=== PATIENT | female | born 2000 | race Caucasian/White ===

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

== ENCOUNTER 2019-05-27 12:26 | Emergency (ER) | payer OTHER ==
[2019-05-27 13:42] VITALS: TEMP 97.9
[2019-05-27 14:23] LABS: Appearance,Urine Clear (Clear); Bilirubin,Urine Negative (Negative); Blood,Urine Trace (Negative); Color,Urine Light Yellow; Glucose,Urine (UA) Negative (Negative); Ketones,Urine Negative (Negative); Leukocyte Esterase,Urine Negative (Negative); Mucus,Urine Rare /hpf; Nitrite,Urine Negative (Negative); Protein,Urine Negative (Negative); RBC,Urine <1 /hpf (0-5); Specific Gravity,Urine 1.008 (1.001-1.035); Squamous Epithelial Cell,Urine 1 /hpf (0-4); Urobilinogen,Urine <2.0 mg/dL (<2.0)
[2019-05-27 14:56] LABS: Basophils # (A) 0.1 k/uL (0-0.2); Basophils % (A) 0 %; Eosinophils # (A) 0.2 k/uL (0-0.7); Eosinophils % (A) 1 %; HCT 38.8 % (34.0-46.0); Lymphocytes # (A) 2.6 k/uL (1.0-4.8); Lymphocytes % (A) 19 %; MCH 25.2 pg (25.0-35.0); MCHC 33.4 g/dL (31.0-37.0); MCV 75.5 fL (80.0-100.0); Mean Platelet Volume 6.5; Microcytosis Slight; Monocytes # (A) 0.7 k/uL (0-1.0); Monocytes % (A) 5 %; Neutrophils # (A) 9.9 k/uL (1.3-7.7); Neutrophils % (A) 73 %; Platelet Count 496 k/uL (150-450); RBC 5.14 m/uL (3.80-5.40); RDW 14.7 % (11.5-15.5); WBC 13.6 k/uL (4.0-11.0)
--- NOTE | 2019-05-27 15:52 | ED ---
Female Urogenital HPI - General Chief complaint: Vaginal Bleeding Stated complaint: newly preg, bleeding Time Seen by Provider: 05/27/19 15:34 Source: patient, family Mode of arrival: ambulatory Limitations: no limitations - History of Present Illness Initial comments: 18-year-old female with no severe past medical history presents today for chief complaint vaginal bleeding principal. Patient states she has irregular periods, last was in the end of March. Patient states that she had some spotting at that time. She states that she took a positive presents to test a few weeks ago. She did make an appointment with Dr. Salinas, however she was told by office staff that they'll call her back to set a date. Patient states that on Sunday she began experiencing mild cramping and bleeding associated having a period. Patient states she did experience some bleeding with her last . Patient states the bleeding persisted and was having she presents emergency room for evaluation with concern first miscarriage. Patient denies any rectal bleeding dizziness lightheadedness syncopal episodes she denies any pallor heart palpitations vaginal discharge or severe abdominal pain. Patient has no other complaints remaining review system negative. Upon arrival patient appears normal signs of acute distress. Last Menstrual Period: 03/28/19 - Related Data Home Medications Medication Instructions Recorded Confirmed Pnv,Calcium 72/Iron/Folic Acid 1 tab PO DAILY 11/26/16 04/29/17 [ Plus Tablet] Previous Rx's Medication Instructions Recorded Acetaminophen-Codeine 300-30mg 2 each PO Q6HR PRN #30 tab 05/04/17 [Tylenol w/codeine #3] Ibuprofen [Motrin] 600 mg PO Q6HR PRN #30 tab 05/04/17 Allergies Allergy/AdvReac Type Severity Reaction Status Date / Time No Known Allergies Allergy Verified 05/27/19 13:42 Review of Systems ROS Statement: Those systems with pertinent positive or pertinent negative responses have been documented in the HPI. ROS Other: All systems not noted in ROS Statement are negative. Past Medical History Past Medical History: No Reported History Additional Past Medical History / Comment(s): OB history: tHis is her first and she has had care with me since the first timester. O+, abs neg, Rub nonimmune, Treponemal ab negm, HIV NR, toxo neg, HEp B neg, GBS neg. History of Any Multi-Drug Resistant Organisms: None Reported Past Surgical History: No Surgical Hx Reported Additional Past Surgical History / Comment(s): lymph node removed as a baby Past Anesthesia/Blood Transfusion Reactions: No Reported Reaction Past Psychological History: No Psychological Hx Reported Smoking Status: Never smoker Past Alcohol Use History: None Reported Past Drug Use History: None Reported - Past Family History Father Family Medical History: Congestive Heart Failure (CHF), Coronary Artery Disease (CAD) Mother Additional Family Medical History / Comment(s): lupus General Exam - General Exam Comments Initial Comments: General: The patient is awake and alert, in no distress, and does not appear acutely ill. Eye: Pupils are equal, round and reactive to light, extra-ocular movements are intact. No nystagmus. There is normal conjunctiva bilaterally. No signs of icterus. Cardiovascular: There is a regular rate and rhythm. No murmur, rub or gallop is appreciated. Respiratory: Lungs are clear to auscultation, respirations are non-labored, breath sounds are equal. No wheezes, stridor, rales, or rhonchi. Gastrointestinal: Soft, non-distended, non-tender abdomen without masses or organomegaly noted. There is no rebound or guarding present. Pelvic exam: No external lesions, vaginal mucosa without lesions pink well rugated, moderate amount of blood in the vaginal vault, there is no adnexal or cervical motion tenderness Musculoskeletal: Normal ROM, no tenderness. Strength 5/5. Sensation intact. Radial pulses equal bilaterally 2+. Neurological: A&O x 3. CN II-XII intact grossly, There are no obvious motor or sensory deficits. Coordination appears grossly intact. Speech is normal. Skin: Skin is warm and dry and no rashes or lesions are noted. Psychiatric: Cooperative, appropriate mood & affect, normal judgment. Limitations: no limitations Course Vital Signs 05/27/19 05/27/19 13:40 17:27 Temperature 97.9 F Pulse Rate 69 70 Respiratory 18 16 Rate Blood Pressure 99/58 110/68 O2 Sat by Pulse 98 98 Oximetry Medical Decision Making - Medical Decision Making Appearing 18-year-old female presenting for vaginal bleeding present. Urine hCG positive. HCG quantitative serum 3617. Patient US revealed a IUP with no HR. Appears as portion to patient's last menstrual period however patient does not have regular periods. Patient crown-rump is measuring 7 weeks. Differential diagnosis includes demise, vs early . Would need to trend HCG and US in order to confirm a diagnosis. Patient has established OBGYN care and has been in contact. HCG lab order was given to patient instructed to repeat this and call [facility] office tomorrow. Return parameters, ddx discussed. Patient appears well, hemodynamically stable. 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 - Lab Data Result diagrams: 05/27/19 14:20 05/27/19 14:20 Lab Results 05/27/19 05/27/19 05/27/19 Range/Units 13:56 13:56 14:20 WBC 13.6 H (4.0-11.0) k/uL RBC 5.14 (3.80-5.40) m/uL Hgb 13.0 (11.4-16.0) gm/dL Hct 38.8 (34.0-46.0) % MCV 75.5 L (80.0-100.0) fL MCH 25.2 (25.0-35.0) pg MCHC 33.4 (31.0-37.0) g/dL RDW 14.7 (11.5-15.5) % Plt Count 496 H (150-450) k/uL Neutrophils % 73 % Lymphocytes % 19 % Monocytes % 5 % Eosinophils % 1 % Basophils % 0 % Neutrophils # 9.9 H (1.3-7.7) k/uL Lymphocytes # 2.6 (1.0-4.8) k/uL Monocytes # 0.7 (0-1.0) k/uL Eosinophils # 0.2 (0-0.7) k/uL Basophils # 0.1 (0-0.2) k/uL Microcytosis Slight Sodium (137-145) mmol/L Potassium (3.5-5.1) mmol/L Chloride (98-107) mmol/L Carbon Dioxide (22-30) mmol/L Anion Gap mmol/L BUN (7-17) mg/dL Creatinine (0.52-1.04) mg/dL Est GFR (CKD-EPI)AfAm (>60 ml/min/1.73 sqM) Est GFR (CKD-EPI)NonAf (>60 ml/min/1.73 sqM) Glucose (74-99) mg/dL Calcium (8.4-10.2) mg/dL Total Bilirubin (0.2-1.3) mg/dL AST (14-36) U/L ALT (9-52) U/L Alkaline Phosphatase (38-126) U/L Total Protein (6.3-8.2) g/dL Albumin (3.5-5.0) g/dL HCG, Qual HCG, Quant mIU/mL Urine Color Light Yellow Urine Appearance Clear (Clear) Urine pH 7.0 (5.0-8.0) Ur Specific [place] 1.008 (1.001-1.035) Urine Protein Negative (Negative) Urine Glucose (UA) Negative (Negative) Urine Ketones Negative (Negative) Urine Blood Trace H (Negative) Urine Nitrite Negative (Negative) Urine Bilirubin Negative (Negative) Urine Urobilinogen <2.0 (<2.0) mg/dL Ur Leukocyte Esterase Negative (Negative) Urine RBC <1 (0-5) /hpf Ur Squamous Epith Cells 1 (0-4) /hpf Urine Mucus Rare H (None) /hpf Urine HCG, Qual Detected (Not Detectd) Trichomonas Ag (Rapid) (Negative) Blood Type Blood Type Recheck Bld Type Recheck Status Antibody Screen Spec Expiration Date 05/27/19 05/27/19 05/27/19 Range/Units 14:20 14:20 14:20 WBC (4.0-11.0) k/uL RBC (3.80-5.40) m/uL Hgb (11.4-16.0) gm/dL Hct (34.0-46.0) % MCV (80.0-100.0) fL MCH (25.0-35.0) pg MCHC (31.0-37.0) g/dL RDW (11.5-15.5) % Plt Count (150-450) k/uL Neutrophils % % Lymphocytes % % Monocytes % % Eosinophils % % Basophils % % Neutrophils # (1.3-7.7) k/uL Lymphocytes # (1.0-4.8) k/uL Monocytes # (0-1.0) k/uL Eosinophils # (0-0.7) k/uL Basophils # (0-0.2) k/uL Microcytosis Sodium 141 (137-145) mmol/L Potassium 4.6 (3.5-5.1) mmol/L Chloride 102 (98-107) mmol/L Carbon Dioxide 25 (22-30) mmol/L Anion Gap 14 mmol/L BUN 9 (7-17) mg/dL Creatinine 0.56 (0.52-1.04) mg/dL Est GFR (CKD-EPI)AfAm >90 (>60 ml/min/1.73 sqM) Est GFR (CKD-EPI)NonAf >90 (>60 ml/min/1.73 sqM) Glucose 86 (74-99) mg/dL Calcium 10.6 H (8.4-10.2) mg/dL Total Bilirubin 0.3 (0.2-1.3) mg/dL AST 26 (14-36) U/L ALT 17 (9-52) U/L Alkaline Phosphatase 101 (38-126) U/L Total Protein 8.6 H (6.3-8.2) g/dL Albumin 4.7 (3.5-5.0) g/dL HCG, Qual Detected HCG, Quant 3617.7 mIU/mL Urine Color Urine Appearance (Clear) Urine pH (5.0-8.0) Ur Specific [place] (1.001-1.035) Urine Protein (Negative) Urine Glucose (UA) (Negative) Urine Ketones (Negative) Urine Blood (Negative) Urine Nitrite (Negative) Urine Bilirubin (Negative) Urine Urobilinogen (<2.0) mg/dL Ur Leukocyte Esterase (Negative) Urine RBC (0-5) /hpf Ur Squamous Epith Cells (0-4) /hpf Urine Mucus (None) /hpf Urine HCG, Qual (Not Detectd) Trichomonas Ag (Rapid) (Negative) Blood Type O Positive Blood Type Recheck O Pos Bld Type Recheck Status No Antibody Screen NEGATIVE Spec Expiration Date 05/30/2019 - 231905/27/19 Range/Units 17:30 WBC (4.0-11.0) k/uL RBC (3.80-5.40) m/uL Hgb (11.4-16.0) gm/dL Hct (34.0-46.0) % MCV (80.0-100.0) fL MCH (25.0-35.0) pg MCHC (31.0-37.0) g/dL RDW (11.5-15.5) % Plt Count (150-450) k/uL Neutrophils % % Lymphocytes % % Monocytes % % Eosinophils % % Basophils % % Neutrophils # (1.3-7.7) k/uL Lymphocytes # (1.0-4.8) k/uL Monocytes # (0-1.0) k/uL Eosinophils # (0-0.7) k/uL Basophils # (0-0.2) k/uL Microcytosis Sodium (137-145) mmol/L Potassium (3.5-5.1) mmol/L Chloride (98-107) mmol/L Carbon Dioxide (22-30) mmol/L Anion Gap mmol/L BUN (7-17) mg/dL Creatinine (0.52-1.04) mg/dL Est GFR (CKD-EPI)AfAm (>60 ml/min/1.73 sqM) Est GFR (CKD-EPI)NonAf (>60 ml/min/1.73 sqM) Glucose (74-99) mg/dL Calcium (8.4-10.2) mg/dL Total Bilirubin (0.2-1.3) mg/dL AST (14-36) U/L ALT (9-52) U/L Alkaline Phosphatase (38-126) U/L Total Protein (6.3-8.2) g/dL Albumin (3.5-5.0) g/dL HCG, Qual HCG, Quant mIU/mL Urine Color Urine Appearance (Clear) Urine pH (5.0-8.0) Ur Specific [place] (1.001-1.035) Urine Protein (Negative) Urine Glucose (UA) (Negative) Urine Ketones (Negative) Urine Blood (Negative) Urine Nitrite (Negative) Urine Bilirubin (Negative) Urine Urobilinogen (<2.0) mg/dL Ur Leukocyte Esterase (Negative) Urine RBC (0-5) /hpf Ur Squamous Epith Cells (0-4) /hpf Urine Mucus (None) /hpf Urine HCG, Qual (Not Detectd) Trichomonas Ag (Rapid) Negative (Negative) Blood Type Blood Type Recheck Bld Type Recheck Status Antibody Screen Spec Expiration Date Disposition Clinical Impression: Vaginal bleeding during , Threatened Disposition: HOME SELF-CARE Condition: Good Instructions (If sedation given, give patient instructions): Threatened Miscarriage (ED) Additional Instructions: Please use medication as discussed. Please follow-up with OBGYN to discuss the results of repeat HCG levels within next week-call office tomorrow to place appointment. Please return to emergency room if the symptoms increase or worsen or for any other concerns. Is patient prescribed a controlled substance at d/c from ED?: No Referrals: Nonstaff,Physician [Primary Care Provider] - 1-2 days America Salinas DO [Doctor of Osteopathic Medicine] - 1-2 days Time of Disposition: 17:15
[2019-05-27 16:24] LABS: ALT 17 U/L (9-52); AST 26 U/L (14-36); African American GFR (CKD) >90 (>60 ml/min/1.73 sqM); Albumin 4.7 g/dL (3.5-5.0); Alkaline Phosphatase 101 U/L (38-126); Anion Gap 14 mmol/L; Blood Urea Nitrogen 9 mg/dL (7-17); Calcium 10.6 mg/dL (8.4-10.2); Carbon Dioxide 25 mmol/L (22-30); Chloride 102 mmol/L (98-107); Glucose 86 mg/dL (74-99); Potassium 4.6 mmol/L (3.5-5.1); Sodium 141 mmol/L (137-145); Total Bilirubin 0.3 mg/dL (0.2-1.3); Total Protein 8.6 g/dL (6.3-8.2)
[2019-05-27 16:40] LABS: HCG,Quantitative Serum 3617.7 mIU/mL
--- NOTE | 2019-05-27 16:47 | US ---
EXAMINATION TYPE: Ultrasound OB <= 14 weeks transvaginal DATE OF EXAM: 05/27/2019 4:31 PM COMPARISON: NONE CLINICAL HISTORY: 18 year-old female with Bleeding. No pain. EXAM PERFORMED: Transvaginal (TV) and Transabdominal (TA) FINDINGS: EXAM MEASUREMENTS: GESTATIONAL AGE / DATING Dates by LMP: ( 8 weeks/4 days) EDC: 01/02/2020 Dates by Current Scan for: ( 7 weeks/1 days +/- 5 days) EDC: 01/12/2020 MATERNAL ANATOMY Uterus: 10.0 x 5.0 x 4.5 cm Right Ovary: 2.6 x 1.4 x 1.0 cm Left Ovary: 3.4 x 2.9 x 2.7 cm Post CDS / Adnexa: no free fluid Presence of free fluid: no Presence of corpus luteal cyst: left ovarian lesion with peripheral vascular flow = 2.8 x 2.2 x 2.0 c m Presence of subchorionic bleed: no GESTATION / SURVEY CRL: 1.1 cm (7 weeks/1 days) MSD: appears small in size Yolk Sac (normal less than 6mm): No YS seen Heart Rate: 0 bpm IUP: Java [employer] notes: [place] Date of LMP: 03/28/2019, Beta HcG (if available): Not available at this time [employer] notes: GS and CRL visualized. Negative FHT's. Color doppler and MMode performed. Fluid seen in cervical canal. GS and pole appear small in size relative to LMP. IMPRESSION: 1. Intrauterine gestation measuring 7 weeks 1 day by crown-rump length and 8 weeks 4 days by LMP whic h is discordant. In addition, no heart tones are identified. Findings highly suggestive of intr auterine size. Confirmation with appropriate downtrending beta-hCG is recommended. 2. A 2.8 cm probable corpus luteum in the left ovary.
[2019-05-27 17:34] VITALS: BP 110/68; PULSE 70; RESP 16
[2019-05-28 12:54] LABS: C. trachomatis,PCR Negative (Neg,Equiv); Chlamydia trachomatis Source Vagina
[2019-05-28 13:04] LABS: N. gonorrhoeae,PCR Negative (Neg,Equiv); Neisseria Source Vagina
== END 2019-05-27 17:27 | disposition home or self-care (01) ==
LOC: EC 12:26
DX: O20.0 Threatened abortion (principal); Z3A.01 Less than 8 weeks gestation of pregnancy
CPT/HCPCS: 36415; 76801; 76817; 80053; 81001; 81025; 84702; 84703; 85025; 86850; 86900; 86901; 87070; 87491; 87591; 87808; 99284

== ENCOUNTER 2021-09-22 16:39 | Outpatient (CLI) | payer OTHER ==
[2021-09-22 17:43] LABS: Basophils % (A) 0 %; Eosinophils # (A) 0.1 k/uL (0-0.7); Eosinophils % (A) 1 %; HCT 31.5 % (34.0-46.0); HGB 10.3 gm/dL (11.4-16.0); Lymphocytes # (A) 1.9 k/uL (1.0-4.8); Lymphocytes % (A) 13 %; MCH 25.8 pg (25.0-35.0); MCHC 32.6 g/dL (31.0-37.0); Mean Platelet Volume 8.3; Monocytes # (A) 0.8 k/uL (0-1.0); Monocytes % (A) 5 %; Neutrophils # (A) 11.4 k/uL (1.3-7.7); Neutrophils % (A) 79 %; Platelet Count 373 k/uL (150-450); RBC 3.99 m/uL (3.80-5.40); RDW 14.7 % (11.5-15.5); WBC 14.5 k/uL (3.8-10.6)
[2021-09-22 17:56] LABS: ALT 15 U/L (4-34); AST 15 U/L (14-36); African American GFR (CKD) >90 (>60 ml/min/1.73 sqM); Blood Urea Nitrogen 8 mg/dL (7-17); LDH 296 U/L (313-618); Non-African American GFR(CKD) >90 (>60 ml/min/1.73 sqM); Uric Acid 4.2 mg/dL (3.7-7.4)
[2021-09-22 18:58] LABS: Amorphous Sediment,Urine Occasional /hpf; Appearance,Urine Turbid (Clear); Bilirubin,Urine Negative (Negative); Blood,Urine Negative (Negative); Color,Urine Yellow; Glucose,Urine (UA) Negative (Negative); Ketones,Urine Negative (Negative); Leukocyte Esterase,Urine Small (Negative); Mucus,Urine Rare /hpf; Nitrite,Urine Negative (Negative); PH, Urine 6.5 (5.0-8.0); Protein,Urine Trace (Negative); RBC,Urine 1 /hpf (0-5); Specific Gravity,Urine 1.017 (1.001-1.035); Squamous Epithelial Cell,Urine 3 /hpf (0-4); Urobilinogen,Urine <2.0 mg/dL (<2.0); WBC,Urine 1 /hpf (0-5)
[2021-09-22 19:00] LABS: Creatinine,Urine Random 87.9 mg/dL; Protein/Creatinine Ratio,Urine 0.137
[2021-09-22 19:29] VITALS: BP 134/70; PULSE 101; RESP 18; TEMP 98
--- NOTE | 2021-09-23 13:20 | P.MSEPDOC ---
Presenting Problems - Arrival Data Date of Arrival on Unit: 09/22/21 Time of Arrival on Unit: 16:39 Mode of Transport: Ambulatory - Complaint OB-Reason for Admission/Chief Complaint: PIH Medical History - Information : 3 Para: 1 Term: 1 : 0 Abortions: Spontaneous or Elective: 0 Number of Living Children: 1 - Gestational Age Gestational Age by MAYUR (wks/days): 34 Weeks and 1 Days - History Complications: Chronic HTN Review of Systems - Review of Systems Constitutional: No problems Breast: No problems ENT: No problems Cardiovascular: No problems Respiratory: No problems Gastrointestinal: No problems Genitourinary: No problems Musculoskeletal: No problems Neurological: No problems Skin: No problems Vital Signs - Temperature Temperature: 98.0 F Temperature Source: Oral - Pulse Right Pulse Oximetery Pulse Rate: 101 Pulse Assessment Method: Pulse Oximetry - Respirations Respiratory Rate: 18 Oxygen Delivery Method: Room Air O2 Sat by Pulse Oximetry: 100 - Blood Pressure Right Arm Blood Pressure: 134/70 Blood Pressure Mean: 91 Blood Pressure Source: Automatic Cuff Physician Notification - Physician Notified Physician Notified Date: 09/22/21 Physician Notified Time: 19:24 Physician: Ross Rey Order Received: Yes (okay to D/C patient with instructions to take her 100mg labetolol BID) Maternal Triage Index - Maternal Triage Index Presenting for scheduled procedure w/no complaint: No - Stat/Priority 1 Stat Priority 1: No - Urgent/Priority 2 Urgent Priority 2: No - Prompt/Priority 3 Prompt Priority 3: Yes Criteria Met for Priority 3: elevated BP at office, here for PIH workup. Disposition - Disposition OB Disposition: Discharge to home Discharge Date: 09/22/21 Discharge Time: 19:25 I agree with the RN Medical Screening Exam: Yes Case reviewed; plan agreed upon as documented in EMR&OBIX.: Yes Diagnosis: PRE-EXISTING ESSENTIAL HTN COMP , THIRD TRIMESTER
== END 2021-09-22 19:25 | disposition home or self-care (01) ==
LOC: FBPOP 16:39
PROVIDERS: ATTEND Obstetrics & Gynecology
DX: O10.013 Pre-existing essential hypertension complicating pregnancy, third trimester (principal); Z3A.34 34 weeks gestation of pregnancy
CPT/HCPCS: 59025; 81001; 82565; 82570; 83615; 84156; 84450; 84460; 84520; 84550; 85025

== ENCOUNTER 2021-10-12 15:45 | Outpatient (CLI) | payer OTHER ==
[2021-10-12 17:05] VITALS: BP 129/71; PULSE 94; RESP 18; TEMP 97.1
--- NOTE | 2021-10-14 07:58 | P.MSEPDOC ---
Presenting Problems - Arrival Data Date of Arrival on Unit: 10/12/21 Time of Arrival on Unit: 15:45 Mode of Transport: Ambulatory - Complaint OB-Reason for Admission/Chief Complaint: Possible Onset of Labor Comment: pt states contractions started at 1330, every few minutes. none seen per monitor or palpated. Medical History - Information : 3 Para: 1 Term: 1 : 0 Abortions: Spontaneous or Elective: 1 Number of Living Children: 1 - Gestational Age Gestational Age by MAYUR (wks/days): 37 Weeks and 0 Days - History Complications: Hx. Substance Abuse Comment: marijuana use during , last used 2weeks-1month ago Review of Systems - Review of Systems Constitutional: No problems Breast: No problems ENT: No problems Cardiovascular: No problems Respiratory: No problems Gastrointestinal: No problems Genitourinary: No problems Musculoskeletal: No problems Neurological: No problems Skin: No problems Vital Signs - Temperature Temperature: 97.1 F Temperature Source: Temporal Artery Scan - Pulse Right Pulse Oximetery Pulse Rate: 94 Pulse Assessment Method: Pulse Oximetry - Respirations Respiratory Rate: 18 Oxygen Delivery Method: Room Air O2 Sat by Pulse Oximetry: 98 - Blood Pressure Right Arm Blood Pressure: 129/71 Blood Pressure Mean: 90 Blood Pressure Source: Automatic Cuff Medical Screen Scoring - Cervical Exam Dilation (cm): 2 Effacement (%): 0 Station: -3 Membranes: Intact - Assessment - Baby A Baseline FHR: 135 Heart Rate - NICHD Category: Category I (Normal) NST: Reactive Physician Notification - Physician Notified Physician Notified Date: 10/12/21 Physician Notified Time: 14:47 Physician: America Salinas New Order Received: Yes - Notification Comment Comment: okay to D/C pt home with instructions Maternal Triage Index - Maternal Triage Index Presenting for scheduled procedure w/no complaint: No - Stat/Priority 1 Stat Priority 1: No - Urgent/Priority 2 Urgent Priority 2: No - Prompt/Priority 3 Prompt Priority 3: No - Non-Urgent/Priority 4 Non-Urgent Priority 4: Yes Criteria Met for Priority 4: pt here for rule out labor, no contractions once admitted to triage. Disposition - Disposition OB Disposition: Discharge to home Discharge Date: 10/12/21 Discharge Time: 14:55 I agree with the RN Medical Screening Exam: Yes Case reviewed; plan agreed upon as documented in EMR&OBIX.: Yes Diagnosis: FALSE LABOR BEFORE 37 COMPLETED WEEKS OF GEST, THIRD TRI
== END 2021-10-12 16:55 | disposition home or self-care (01) ==
LOC: FBPOP 15:45
PROVIDERS: ATTEND Obstetrics & Gynecology
DX: O47.1 False labor at or after 37 completed weeks of gestation (principal); Z3A.37 37 weeks gestation of pregnancy
CPT/HCPCS: 59025; G0463; 99213

== ENCOUNTER 2021-10-26 06:13 | Inpatient (IN) | payer OTHER ==
[2021-10-25 11:09] VITALS: BMI 40.3
--- NOTE | 2021-10-25 20:30 | P.HPOB ---
History of Present Illness H&P Date: 10/25/21 Chief Complaint: Scheduled repeat section with tubal ligation This is a 21 y.o. female, 3, para 1, with an estimated date of confinement of 11/02/2021, estimated gestational age of 39 weeks, who presents for scheduled repeat section with bilateral partial salpingectomy for family planning. She admits to good movement. She has been getting re gular NSTs due to chronic hypertension and has been on Labetalol for blood pressure control. labs: Blood type-O+ Antibody screen-neg Hemoglobin-11.7 Pap-wnl Rubella-immune RPR-NR Hepatitis B surface antigen-neg HIV-NR GC/Chlamydia-neg UDS-03/23/2021-+marijuana Quad-neg 1 hr. GTT-110 GBS-neg OB Hx: . History of previous section, emergent at 39 weeks. Baby wt. was 8#4oz. History of 1 miscarriage. Social Hx: Single. 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 Review of Systems Constitutional: Denies chills, Denies fever Eyes: denies blurred vision, denies pain Ears, nose, mouth and throat: Denies headache, Denies sore throat Cardiovascular: Denies chest pain, Denies shortness of breath Respiratory: Denies cough Gastrointestinal: Reports abdominal pain (irregular contractions) Genitourinary: Reports pelvic pain, Reports Musculoskeletal: Reports low back pain Past Medical History Past Medical History: Hypertension Additional Past Medical History / Comment(s): hx migraines History of Any Multi-Drug Resistant Organisms: None Reported Past Surgical History: Section Additional Past Surgical History / Comment(s): rt lymph node removed as a baby due to cat scratch fever Past Anesthesia/Blood Transfusion Reactions: No Reported Reaction Past Psychological History: No Psychological Hx Reported Smoking Status: Never smoker Past Alcohol Use History: None Reported Past Drug Use History: Marijuana - Past Family History Father Family Medical History: Congestive Heart Failure (CHF), Coronary Artery Disease (CAD) Mother Additional Family Medical History / Comment(s): lupus Medications and Allergies Home Medications Medication Instructions Recorded Confirmed Type Labetalol [Trandate] 100 mg PO BID 10/12/21 10/26/21 History Pnv No.95/Ferrous Fum/Folic AC 1 tab PO DAILY 10/12/21 10/26/21 History [ Multivitamin Tablet] Allergies Allergy/AdvReac Type Severity Reaction Status Date / Time No Known Allergies Allergy Verified 10/25/21 11:02 Exam Osteopathic Statement: *. No significant issues noted on an osteopathic structural exam other than those noted in the History and Physical/Consult. Intake and Output 10/25/21 10/25/21 10/25/21 06:59 14:59 22:59 Other: Weight 113.398 kg HEENT: within normal limits Heart: regular rate and rhythm Lungs: clear to auscultation bilaterally Abdomen: soft, Cervix: 1 cm/60%/-1 heart tones: 140's by doppler Extremities: neg. Guille's Results Result Diagrams: 10/26/21 06:38 Assessment and Plan (1) 39 weeks gestation of Current Visit: No Status: Acute Code(s): Z3A.39 - 39 WEEKS GESTATION OF SNOMED Code(s): 84713061 (2) Chronic hypertension affecting Current Visit: No Status: Acute Code(s): O10.919 - UNSP PRE-EXISTING HTN COMP , UNSP TRIMESTER SNOMED Code(s): 03972115 (3) Family planning Current Visit: No Status: Acute Code(s): Z30.09 - ENCOUNTER FOR OTH GENERAL CNSL AND ADVICE ON CONTRACEPTION SNOMED Code(s): 392313139 Plan: Proceed with repeat low transverse section with bilateral partial salpingectomy. I have discussed the risks, benefits, and alternative therapies for the above- mentioned procedure and for both sedation/anesthesia as well as necessary blood products administration, if indicated, as they pertain to this patient. The patient has indicated her understanding and acceptance of the risks and procedures discussed.
[2021-10-26] MEDS ORDERED: CITRIC ACID-SODIUM CITRATE 15 ML CUP PO ONE (06:22)
[2021-10-26] MEDS ORDERED: LIDOCAINE 1% (10MG/ML) FOR IV START INTRADERMA PRN (06:22)
[2021-10-26] MEDS ORDERED: LACTATED RINGERS 1,000 ML IV ONE (06:22)
[2021-10-26 07:01] LABS: Basophils % (A) 0 %; Eosinophils # (A) 0.1 k/uL (0-0.7); Eosinophils % (A) 1 %; HCT 32.2 % (34.0-46.0); HGB 10.3 gm/dL (11.4-16.0); Lymphocytes # (A) 1.9 k/uL (1.0-4.8); Lymphocytes % (A) 14 %; MCH 24.8 pg (25.0-35.0); MCHC 31.9 g/dL (31.0-37.0); MCV 77.8 fL (80.0-100.0); Mean Platelet Volume 8.6; Monocytes # (A) 0.7 k/uL (0-1.0); Monocytes % (A) 5 %; Neutrophils # (A) 10.6 k/uL (1.3-7.7); Neutrophils % (A) 78 %; Platelet Count 364 k/uL (150-450); RBC 4.14 m/uL (3.80-5.40); RDW 15.1 % (11.5-15.5); WBC 13.7 k/uL (3.8-10.6)
[2021-10-26 07:08] LABS: Glucose,Urine (UA) Negative (Negative); Ketones,Urine Negative (Negative); Protein,Urine Negative (Negative)
[2021-10-26] MEDS: LABETALOL 100 MG TAB PO SCH ×3 (07:08→20:24)
[2021-10-26 07:10] LABS: Amphetamine Screen,Urine Not Detected (NotDetected); Barbiturate Screen,Urine Not Detected (NotDetected); Benzodiazepines Screen,Urine Not Detected (NotDetected); Cocaine Screen,Urine Not Detected (NotDetected); Methadone Screen, Urine Not Detected (NotDetected); Opiate Screen,Urine Not Detected (NotDetected); Oxycodone Screen, Urine Not Detected (NotDetected); Phencyclidine Screen,Urine Not Detected (NotDetected); Tricyclic Antidepressant,Urine Not Detected (NotDetected); Urn Cannabinoid Scrn Not Detected (NotDetected)
[2021-10-26] MEDS ORDERED: KETOROLAC 15 MG/ML 1 ML VIAL ONE (07:57)
[2021-10-26] MEDS ORDERED: ONDANSETRON 4 MG/2 ML VIAL ONE (07:57)
[2021-10-26] MEDS ORDERED: fentaNYL (PF) 50 MCG/ML 2 ML AMP ONE (07:57)
[2021-10-26] MEDS ORDERED: PHENYLEPHRINE-0.9% NACL SYG 1,000 MCG/10 ML SYRINGE ONE (07:57)
[2021-10-26] MEDS ORDERED: MORPHINE SULFATE (PF) 0.3 MG/0.3 ML SYR ONE (07:57)
[2021-10-26] MEDS ORDERED: OXYTOCIN 30 UNITS/500 ML NS BAG IV ONE (07:57)
[2021-10-26] MEDS ORDERED: NALBUPHINE 10 MG/ML (1 ML AMP) ONE (07:57)
--- NOTE | 2021-10-26 08:47 | P.OP ---
Date of Procedure: 10/26/21 Preoperative Diagnosis: 1. Intrauterine at 39-0/7 weeks. 2. History of previous section. 3. Family-planning. 4. Chronic hypertension. Postoperative Diagnosis: Same Procedure(s) Performed: Repeat low transverse section with bilateral partial salpingectomy Anesthesia: spinal (Duramorph) Surgeon: Amalia Ruiz Plaster Model And Mold Maker #1: Tyron Watson Estimated Blood Loss (ml): 500 Pathology: other (Placenta, portions of right and left fallopian tubes) Condition: stable Disposition: floor Indications for Procedure: This is a 21-year-old female 3 para 1 at 39-0/7 weeks who presented for scheduled repeat section with bilateral partial salpingectomy for family planning. She does have a history of chronic hypertension and has been on labetalol throughout her . Blood pressures have been well controlled. I have discussed the risks, benefits, and alternative therapies for the above- mentioned procedure and for both sedation/anesthesia as well as necessary blood products administration, if indicated, as they pertain to this patient. The patient has indicated her understanding and acceptance of the risks and procedures discussed. Operative Findings: A viable female infant is noted in the vertex presentation with nuchal cord 1 and scores of 9 at 1 minute and 9 at 5 minutes and weight is 8 lbs. 5 oz. Normal uterus tubes and ovaries are noted. There is a small omental adhesion to the anterior abdominal wall. Description of Procedure: The patient is taken to the operating room where she is placed in the dorsal supine position with leftward tilt after spinal Duramorph anesthesia is given. She is prepped and draped in the normal sterile fashion. Skin was tested and found to be adequately anesthetized. A Pfannenstiel skin incision was made with a scalpel through the previous laparotomy scar. A second knife was used to carry the incision down to the underlying layer of fascia. The fascia was nicked in the midline with a scalpel and then extended laterally bilaterally with Delgado scissors. The anterior lip of the fascia was grasped with 2 Robert clamps and then dissected off the underlying rectus muscle in the midline with Delgado scissors. The inferior aspect of the fascial incision was grasped with 2 Robert clamps and dissected off the underlying rectus muscle and the midline with Delgado scissors. Next the peritoneum layer was tented up with 2 hemostats and then entered sharply with the scalpel. The incision is extended superiorly and inferiorly with Metzenbaum scissors. Next a DeLee retractor is placed. The vesicouterine peritoneum is entered sharply with Metzenbaum scissors and extended laterally bilaterally with Metzenbaum scissors and then the bladder flap is pushed inferiorly. The lower uterine segment is incised in transverse fashion with the scalpel and then bluntly entered with a hemostat. Clear fluid is noted. The incision was then extended laterally bilaterally with 2 fingers. Next the 's head is delivered through the incision. Nose and mouth are bulb suctioned. Nuchal cord 1 is reduced around the infant's head. The remainder of the infant is easily delivered and placed on mother's abdomen. Cord is clamped and cut. Infant is taken to warmer by nursing staff. Uterine fundus is gently massaged and placenta is delivered manually. Uterus is exteriorized and cleared of all clots and debris. Uterine incision is closed with 0 Vicryl suture in a running locked fashion. A second layer of 0 Vicryl suture is used in a running fashion for hemostasis. Once adequate hemostasis as assured, the vesicouterine peritoneum is reapproximated with 2-0 Vicryl suture in a running fashion. Next attention is turned to the fallopian tubes. The right fallopian tube is grasped in the midportion with a hemostat. The mesosalpinx is entered with Bovie cautery. 0 Vicryl suture is tied 2 times around both the proximal and distal portion of the tube. The knuckle of tube was then removed with Metzenbaum scissors. The ends of the tubes are then cauterized with Bovie cautery. The same procedure is carried out on the left fallopian tube. Both tubal sites appeared hemostatic. Posterior cul-de-sac is suctioned of all clots and debris. Uterus is returned to the abdomen. Incision is noted to be hemostatic. The tubal sites are visualized and appeared hemostatic. Peritoneal layer is closed with 0 Vicryl suture in a running fashion. There is noted to be a omental adhesion more to the left side of the incision anteriorly. This is left in place. Muscle layer is reapproximated with 0 Vicryl suture in interrupted fashion. Fascia layer is then closed with 0 PDS suture with 2 sutures meeting in the midline and the knots buried in either side and in the midline. The subcutaneous tissue was then closed with 2-0 Vicryl suture. Skin layer was then closed with angelika. All sponge and needle counts are correct. The patient is taken to recovery room in stable condition.
[2021-10-26] MEDS ORDERED: PRENATAL VIT-IRON-FOLIC ACID 1 EACH CAP PO SCH (09:00)
[2021-10-26] MEDS ORDERED: METOCLOPRAMIDE 5 MG/ML 2 ML VIAL IVP PRN (09:09)
[2021-10-26] MEDS ORDERED: SIMETHICONE 80 MG CHEWABLE PO PRN (09:09)
[2021-10-26] MEDS ORDERED: ONDANSETRON 4 MG/2 ML VIAL IVP PRN (09:09)
[2021-10-26] MEDS ORDERED: HYDROmorphone 1 MG/ML 1 ML SYRINGE IVP PRN ×2 (09:09)
[2021-10-26] MEDS ORDERED: diphenhydrAMINE 25 MG CAP PO PRN (09:09)
[2021-10-26] MEDS ORDERED: NALOXONE 0.4 MG/ML 1 ML VIAL IV PRN (09:09)
[2021-10-26] MEDS ORDERED: ZOLPIDEM 5 MG TAB PO PRN (09:09)
[2021-10-26] MEDS ORDERED: OXYTOCIN 30 UNITS/500 ML NS 30 UNIT in SALINE 1 500ML.BAG IV SCH (09:09)
[2021-10-26] MEDS ORDERED: LANOLIN CREAM 5 GM TUBE TOPICAL PRN (09:09)
[2021-10-26] MEDS ORDERED: diphenhydrAMINE 50 MG CAP PO PRN (09:09)
[2021-10-26] MEDS ORDERED: diphenhydrAMINE 50 MG/ML 1 ML VIAL IVP PRN ×2 (09:09)
[2021-10-26] MEDS ORDERED: ACETAMINOPHEN IV (For NPO) 1,000 MG in EMPTY BAG 1 BAG IVPB PRN (12:00)
[2021-10-26] MEDS: SENNOSIDES-DOCUSATE SODIUM 1 EACH TAB PO SCH (13:34)
[2021-10-26] MEDS: ACETAMINOPHEN TAB 500 MG TAB PO SCH ×2 (13:35→19:51)
[2021-10-26 15:59] VITALS: RESP 16
[2021-10-26] MEDS: IBUPROFEN 600 MG TAB PO SCH ×2 (17:35→23:35)
[2021-10-26] MEDS ORDERED: KETOROLAC 30 MG/ML 1 ML VIAL IVP PRN (18:00)
[2021-10-26] MEDS: LACTATED RINGERS 1,000 ML IV SCH (18:39)
[2021-10-27] MEDS: SENNOSIDES-DOCUSATE SODIUM 1 EACH TAB PO SCH ×3 (00:15→20:03)
[2021-10-27] MEDS: ACETAMINOPHEN TAB 500 MG TAB PO SCH ×4 (03:20→17:02)
[2021-10-27] MEDS: IBUPROFEN 600 MG TAB PO SCH ×3 (06:51→20:03)
[2021-10-27 08:17] LABS: Basophils % (A) 0 %; Eosinophils % (A) 0 %; HCT 27.8 % (34.0-46.0); HGB 9.2 gm/dL (11.4-16.0); Hypochromasia Slight; Lymphocytes # (A) 1.4 k/uL (1.0-4.8); Lymphocytes % (A) 12 %; MCH 26.1 pg (25.0-35.0); MCHC 33.1 g/dL (31.0-37.0); MCV 78.6 fL (80.0-100.0); Mean Platelet Volume 7.6; Monocytes # (A) 0.7 k/uL (0-1.0); Monocytes % (A) 6 %; Neutrophils # (A) 9.7 k/uL (1.3-7.7); Neutrophils % (A) 80 %; Platelet Count 294 k/uL (150-450); RBC 3.53 m/uL (3.80-5.40); RDW 15.2 % (11.5-15.5); WBC 12.1 k/uL (3.8-10.6)
--- NOTE | 2021-10-27 09:00 | P.PNOBGPC ---
Subjective - Subjective Principal diagnosis: Status post repeat section with TL POD #1 Interval history: Patient is doing okay. She is ambulating. Lochia is minimal. Pain is fairly well controlled. She is working at breast-feeding but is currently bottle feeding. Patient reports: Reports appetite normal, Reports voiding normally, Reports pain well controlled, Reports ambulating normally : doing well Objective - Vital Signs Latest vital signs: Vital Signs Temp Pulse Resp BP Pulse Ox 10/27/21 04:00 97.8 F 99 16 133/79 98 10/27/21 00:00 97.8 F 99 16 129/79 98 10/26/21 20:00 97.6 F 106 H 16 129/71 10/26/21 15:56 97.4 F L 88 16 125/83 10/26/21 14:30 98.2 F 95 18 142/88 97 10/26/21 14:19 95 18 10/26/21 11:10 97.3 F L 91 16 130/58 10/26/21 10:40 90 16 134/76 10/26/21 10:10 81 16 136/81 98 10/26/21 09:55 98 16 142/88 97 10/26/21 09:40 89 16 141/83 98 10/26/21 09:25 96 20 133/78 97 10/26/21 09:10 97 16 130/90 98 10/26/21 09:00 97.8 F 95 16 130/86 100 Intake and Output 10/26/21 10/27/21 10/27/21 22:59 06:59 14:59 Output Total 1800 500 Balance -1800 -500 Output: Urine 1800 500 Uretheral (Conroy) 500 Other: # Voids 2 - Exam Extremities: Present: normal. Absent: tenderness Abdomen: Present: normal appearance, soft (Positive bowel sounds 4). Absent: distention, tenderness Incision: Present: normal, dry, intact. Absent: erythematous Uterus: Present: normal, firm. Absent: tenderness - Labs Labs: Abnormal Lab Results - Last 24 Hours (Table) 10/27/21 Range/Units 07:34 WBC 12.1 H (3.8-10.6) k/uL RBC 3.53 L (3.80-5.40) m/uL Hgb 9.2 L (11.4-16.0) gm/dL Hct 27.8 L (34.0-46.0) % MCV 78.6 L (80.0-100.0) fL Neutrophils # 9.7 H (1.3-7.7) k/uL Assessment and Plan Assessment: Status post repeat section with tubal ligation postoperative day #2 Chronic hypertension (1) 39 weeks gestation of Current Visit: No Status: Acute Code(s): Z3A.39 - 39 WEEKS GESTATION OF SNOMED Code(s): 80212213 (2) Chronic hypertension affecting Current Visit: No Status: Acute Code(s): O10.919 - UNSP PRE-EXISTING HTN COMP , UNSP TRIMESTER SNOMED Code(s): 92149295 (3) Family planning Current Visit: No Status: Acute Code(s): Z30.09 - ENCOUNTER FOR OT GENERAL CNSL AND ADVICE ON CONTRACEPTION SNOMED Code(s): 864298535 Plan: Will continue with postoperative and care today. We will continue to monitor blood pressures. Advance diet as tolerated after flatus.
[2021-10-27] MEDS: LABETALOL 100 MG TAB PO SCH ×2 (09:26→20:02)
--- NOTE | 2021-10-27 11:39 | P.PN ---
Progress Note - Text Date: 10/27/2021 Time: 07:07 The patient is status post section Vital signs stable VAS: 0-10 Patient has no complaints of pain. The patient incurred some minimal itching yesterday, this itching is now subsiding. Pain meds to be managed by service.
[2021-10-28 01:38] VITALS: TEMP 97.5
[2021-10-28] MEDS: ACETAMINOPHEN TAB 500 MG TAB PO SCH ×2 (01:44→08:10)
[2021-10-28] MEDS: IBUPROFEN 600 MG TAB PO SCH ×3 (04:46→11:09)
[2021-10-28] MEDS: LABETALOL 100 MG TAB PO SCH (08:10)
[2021-10-28] MEDS: SENNOSIDES-DOCUSATE SODIUM 1 EACH TAB PO SCH (08:10)
[2021-10-28 08:18] VITALS: BP 129/82; PULSE 88
--- NOTE | 2021-10-28 08:45 | P.DS ---
Providers Date of admission: 10/26/21 06:13 Expected date of discharge: 10/28/21 Attending physician: Amalia Ruiz Primary care physician: Stated None - Discharge Diagnosis(es) (1) 39 weeks gestation of Current Visit: No Status: Acute (2) Chronic hypertension affecting Current Visit: No Status: Acute (3) Family planning Current Visit: No Status: Acute Hospital Course: This is a 21-year-old female 3 para 1 at 39-0/7 weeks who presented for scheduled repeat section with tubal ligation. She underwent a repeat low transverse section with bilateral partial salpingectomy on 10/26/2021 and delivered a viable female with scores of 9 at 1 minute and 9 at 5 minutes and weight of 8 lbs. 5 oz. Her postoperative and course have been essentially uncomplicated. She was continued on her labetalol 100 mg twice a day due to chronic hypertension. Her blood pressures have actually been on the lower side. Her pain is been well controlled with ibuprofen and Tylenol. She is breast-feeding. Vital signs are stable. Abdomen is soft with positive bowel sounds 4. Incision is clean dry and intact with angelika in place. Extremities show negative Homans. Impression is status post repeat section with bilateral partial salpingectomy postoperative day #2. Plan is to discharge home today. Routine postoperative and instructions are given. She is advised to stop taking her labetalol and we will repeat her blood pressure at her one-week postoperative check. She also will be given a prescription for ibuprofen. She has a breast pump at home. She is advised to call the office she has any further questions or concerns prior to her appointment times. Procedures: Repeat low transverse section with bilateral partial salpingectomy on 10/26/2021 Patient Condition at Discharge: Stable Plan - Discharge Summary Discharge Rx Participant: Yes New Discharge Prescriptions: New Ibuprofen [Motrin] 600 mg PO Q6H #60 tab Continue Pnv No.95/Ferrous Fum/Folic AC [ Multivitamin Tablet] 1 tab PO DAILY Discontinued Labetalol [Trandate] 100 mg PO BID Discharge Medication List Pnv No.95/Ferrous Fum/Folic AC [ Multivitamin Tablet] 1 tab PO DAILY 10/12/21 [History] Ibuprofen [Motrin] 600 mg PO Q6H #60 tab 10/28/21 [Rx] Follow up Appointment(s)/Referral(s): America Salinas DO [Doctor of Osteopathic Medicine] - 1 Week (Post op. -11/04/21@09:45am 6 week- 12/09/21 @10:45am) Amalia Ruiz DO [Doctor of Osteopathic Medicine] - 1 Week (One week postoperative check and 6 weeks check) Activity/Diet/Wound Care/Special Instructions: Instructions 1. Do not begin any exercise program for 3 weeks. 2. Do not resume sexual relations for 3 weeks or longer if uncomfortable. 3. You may take tub baths or showers at any time. 4. You may use tampons if desired after 3 weeks. 5. Keep the area of episiotomy (stitches) clean and dry. 6. If you are not nursing, wear a good fitting, supportive bra during the day and limit fluid intake for at least 1 week to prevent breast engorgement. 7. Call the office, [phone], within the next week to make appointment for your 6 week checkup if it has not already been made. 8. Report any of the following occurrences to the doctor promptly: a. Heavy, excessive bleeding b. Chills, fever c. Burning or frequency of urination d. Pain or redness and breasts if nursing e. Increasing pain or swelling in episiotomy (stitches). In addition to the above instructions, the following additional should be followed: 1. No heavy lifting or straining (exercising) until after 6 week checkup. 2. Keep abdominal incision clean and dry: You may wear a dressing if more comfortable. 3. Make office appointment for 10 days after going home or as instructed by her doctor. Discharge Disposition: HOME SELF-CARE
== END 2021-10-28 13:30 | disposition home or self-care (01) | DRG 784 ==
LOC: 4FBP 06:13
PROVIDERS: ADMIT Obstetrics & Gynecology; ATTEND Obstetrics & Gynecology
PROC: 0UB70ZZ Excision of Bilateral Fallopian Tubes, Open Approach (ICD-10-PCS; 2021-10-26)
PROC: 4A0HXCZ Measurement of Products of Conception, Cardiac Rate, External Approach (ICD-10-PCS; 2021-10-26)
PROC: 10D00Z1 Extraction of Products of Conception, Low, Open Approach (ICD-10-PCS; principal; 2021-10-26 08:10)
DX: O34.211 Maternal care for low transverse scar from previous cesarean delivery (principal); O10.92 Unspecified pre-existing hypertension complicating childbirth; O99.354 Diseases of the nervous system complicating childbirth; G43.909 Migraine, unspecified, not intractable, without status migrainosus; O99.73 Diseases of the skin and subcutaneous tissue complicating the puerperium; L29.9 Pruritus, unspecified; O69.81X0 Labor and delivery complicated by cord around neck, without compression, not applicable or unspecified; K66.0 Peritoneal adhesions (postprocedural) (postinfection); O99.892 Other specified diseases and conditions complicating childbirth; Z37.0 Single live birth; Z3A.39 39 weeks gestation of pregnancy; Z30.2 Encounter for sterilization; Z87.59 Personal history of other complications of pregnancy, childbirth and the puerperium; Z30.09 Encounter for other general counseling and advice on contraception
CPT/HCPCS: 80306; 81003; 85025; 86850; 86900; 86901; 88302; 88307

== ENCOUNTER → 2023-08-17 | Outpatient (CLI) | payer OTHER ==
--- NOTE | 2023-08-17 09:12 | US ---
EXAMINATION TYPE: US abdomen complete DATE OF EXAM: 08/17/2023 COMPARISON: NONE CLINICAL INDICATION: Female, 23 years old with history of N92.0 Excessive and frequent menstruation; Bilateral flank pain since Tubal Ligation 10-26-21; Patient denies any relevant history TECHNIQUE: Multiple sonographic images of the abdomen are obtained. FINDINGS: EXAM MEASUREMENTS: Liver Length: 15.5 cm Gallbladder Wall: 0.2 cm CBD: 0.2 cm Spleen: 11.8 cm Right Kidney: 11.5 x 3.9 x 4.8 cm Left Kidney: 12.7 x 6.1 x 5.3 cm APPLIANCE TESTER NOTES: Unremarkable exam Pancreas: wnl Liver: wnl Gallbladder: wnl Evidence for sonographic Foster's sign: no CBD: wnl Spleen: wnl Right Kidney: wnl Left Kidney: wnl Upper IVC: wnl Abd Aorta: wnl The liver is homogenous. The intrahepatic portion of the IVC and proximal abdominal aorta are within normal limits. There is no evidence of cholelithiasis. Common bile duct is unremarkable. The visu alized portions of the pancreas are homogenous. The spleen is unremarkable. Kidneys are symmetric a nd free of hydronephrosis. No renal lesions are seen. IMPRESSION: No evidence for acute process.
--- NOTE | 2023-08-17 09:26 | US ---
EXAMINATION TYPE: US pelvic complete DATE OF EXAM: 08/17/2023 COMPARISON: 05/27/2019. CLINICAL INDICATION: Female, 23 years old with history of N92.0 Excessive and frequent menstruation; Heavy menses with pelvic pain since tubal ligation 10-26-21; Hx Csect x 2, , Gestational HTN TECHNIQUE: Transabdominal sonographic images of the pelvis were acquired. Transvaginal sonographic images were declined by patient Date of LMP: 07/23/2023 EXAM MEASUREMENTS: Uterus: 8.9 x 4.1 x 5.9 cm Endometrial Stripe: 1.6 cm Right Ovary: 3.9 x 2.9 x 2.9 cm Left Ovary: 2.1 x 2.2 x 1.9 cm 1. Uterus: Anteverted wnl 2. Endometrium: Thickened 3. Right Ovary: Dominant follicle noted 4. Left Ovary: wnl 5. Bilateral Adnexa: Dilated tubular structure between right ovary and uterus; Trace fluid anterior Cul De Sac/adjacent to left ovary 6. Posterior cul-de-sac: wnl IMPRESSION: Heterogeneously thickened endometrium which is within normal limits for thickness for pat ient's age. Underlying blood products likely present.
== END | disposition home or self-care (01) ==
LOC: RADUSWWP 06:54
PROVIDERS: ATTEND Family Medicine
DX: N92.0 Excessive and frequent menstruation with regular cycle (principal)
CPT/HCPCS: 76700; 76856